=== PATIENT | female | born 1970 ===

== ENCOUNTER 2021-02-09 23:29 | Emergency (ER) | payer OTHER ==
[~2021-02-09] VITALS: Ht 157.5 cm; Wt 76.0 kg
[2021-02-10 00:17] LABS: MICROSCOPIC AUTO
[2021-02-10] MEDS ORDERED: SODIUM CHLORIDE 0.9% 1,000ML IVBOLUS ONE (00:30)
[2021-02-10] MEDS ORDERED: ONDANSETRON 2MG/ML, 2ML IVPush ONE (00:30)
[2021-02-10] MEDS ORDERED: SODIUM CHLORIDE FLUSH 10ML SYR IVF ONE (00:30)
[2021-02-10 00:47] LABS: BASOPHILS % (AUTO) 0 % (0-1); EOSINOPHILS % (AUTO) 0 % (1-7); LYMPHOCYTES % (AUTO) 10 % (22-44); MEAN CORPUSCULAR HEMOGLOBIN 29.3 pg (27.0-34.8); MEAN CORPUSCULAR HGB CONC 34.4 g/dL (32.4-35.8); MONOCYTES % (AUTO) 5 % (2-9); NEUTROPHILS % (AUTO) 85 % (42-75); PLATELET COUNT 298 x10^3/uL (130-400); RED BLOOD COUNT 4.98 x10^6/uL (3.82-5.3); RED CELL DISTRIBUTION WIDTH 13.7 % (9.6-15.2)
[2021-02-10 00:57] LABS: ALANINE AMINOTRANSFERASE 23 U/L (12-78); ALBUMIN 3.6 g/dL (3.4-5.0); ANION GAP 6 mmol/L (5-15); CALCIUM 8.7 mg/dL (8.5-10.1); CHLORIDE 107 mmol/L (98-107); CREATININE 0.64 mg/dL (0.55-1.02)
[2021-02-10 01:00] LABS: ALKALINE PHOSPHATASE 94 U/L (45-117); BILIRUBIN,TOTAL 0.4 mg/dL (0.2-1.0); TOTAL PROTEIN 7.7 g/dL (6.4-8.2)
--- NOTE | 2021-02-10 02:55 | NUR ---
PT C/O OF NAUSEA, HEADACHES AND FATIGUE SINCE LAST TUESDAY. ATTACHED TO CARD/SP02/CAKE PULLER MONITORS. NADN. BED IN LOW POSITION, RAILS ENGAGED, CALL LIGHT ON LAP. BREATHING EVEN AND UNLABORED WCTM
[2021-02-10] MEDS ORDERED: METOCLOPRAMIDE 5 MG/ML, 2ML IVPush ONE (03:00)
[2021-02-10] MEDS ORDERED: KETOROLAC 30 MG/1 ML IVPush ONE (03:00)
--- NOTE | 2021-02-10 03:01 | NUR ---
PT REPORTS THAT SHE HAS FELT DIZZY THYE LAST FEW DAYS WELL
[2021-02-10] MEDS ORDERED: KETOROLAC 30 MG/1 ML ONE (03:13)
[2021-02-10] MEDS ORDERED: ONDANSETRON 2MG/ML, 2ML ONE (03:13)
[2021-02-10] MEDS ORDERED: METOCLOPRAMIDE 5 MG/ML, 2ML ONE (03:13)
[2021-02-10 03:22] LABS: TROPONIN I < 0.015 ng/mL (0.000-0.045)
[2021-02-10] MEDS ORDERED: DIPHENHYDRAMINE 25 MG CAPSULE ONE (04:05)
--- NOTE | 2021-02-10 04:15 | NUR ---
PT RESTING IN BED. ATTACHED TO MONITORS. VSS. PT APPEARS ANXIOUS. MONITORING PT FOR RIGHT NOW DUE TO ANXIOUS REACTION OF REGSELVIN. WCTM CALL LIGHT ON LAP. AT BEDSIDE.
[2021-02-10] MEDS ORDERED: LORazepam 1MG TABLET ONE (04:26)
[2021-02-10] MEDS ORDERED: LORazepam 2 MG/ML, 1ML IVPush ONE (04:30)
[2021-02-10] MEDS ORDERED: DIPHENHYDRAMINE 25 MG CAPSULE PO ONE (04:30)
[2021-02-10] MEDS ORDERED: LORazepam 1MG TABLET PO ONE (04:30)
--- NOTE | 2021-02-10 04:37 | NUR ---
TECH IN ROOM FOR EKG. PT COMPLAINT OR HAVING TROUBLED BREATHING
[2021-02-10 05:03] VITALS: BP 135/79
--- NOTE | 2021-02-10 05:04 | NUR ---
Patient AND SPOUSE given discharge instructions and they have confirmed that they understand the instructions. Patient ambulatory with steady gait. NAD, all questions answered appropriately, denies additional needs at this time. No personal belongings left in room after discharge. Pt said she was feeling better and was ready to leave and go back to [facility].
== END 2021-02-10 05:06 | disposition home or self-care (01) ==
LOC: ED 02-10 04:00
DX: K52.9 Noninfective gastroenteritis and colitis, unspecified (principal); R00.1 Bradycardia, unspecified
CPT/HCPCS: 36415; 80053; 81001; 83690; 84484; 85025; 93005; 96374; 96375; 99285; J1885; J2405; J2765; J7030; Q0163